=== PATIENT | female | born 1990 | race Two or more races ===

== ENCOUNTER 2023-10-31 12:14 | Emergency (ER) | payer SELFPAY ==
[~2023-10-31] VITALS: Ht 165.1 cm; Wt 54.7 kg
[2023-10-31 13:18] VITALS: BP 100/65; PULSE 77; RESP 16; TEMP 97.7; O2SAT 96
[2023-10-31] MEDS ORDERED: NAPR-746 PO (14:30)
[2023-10-31] MEDS ORDERED: NEOMYCIN-BACITRACIN-POLYM UNITDOSE PKG TOP OINT TOP ONE (14:30)
[2023-10-31] MEDS ORDERED: CEPH500C PO (14:30)
[2023-10-31] MEDS ORDERED: NEOMYCIN-BACITRACIN-POLYM 15GM TOP OINT TOP SCH (22:00)
== END 2023-10-31 14:35 | disposition home or self-care (01) ==
LOC: ER 12:14
DX: S61.001A Unspecified open wound of right thumb without damage to nail, initial encounter (principal); Z88.0 Allergy status to penicillin; W26.9XXA Contact with unspecified sharp object(s), initial encounter; Y93.89 Activity, other specified; Y92.89 Other specified places as the place of occurrence of the external cause; Y99.8 Other external cause status
CPT/HCPCS: 73140